=== PATIENT | male | born 1960 | race Caucasian/White ===

== ENCOUNTER → 2017-10-30 | Outpatient (CLI) | payer OTHER | END | disposition home or self-care (01) | LOC: CVU 06:44 | PROVIDERS: ATTEND Internal Medicine Cardiovascular Disease | DX: I87.2 Venous insufficiency (chronic) (peripheral) (principal) | CPT/HCPCS: 93970 ==

== ENCOUNTER 2021-03-13 12:45 | Emergency (ER) | payer OTHER ==
[~2021-03-13] VITALS: Ht 188 cm; Wt 107.0 kg
[2021-03-13 13:49] LABS: BASOPHILS % (AUTO) 1 % (0-1); EOSINOPHILS % (AUTO) 3 % (1-7); LYMPHOCYTES % (AUTO) 15 % (22-44); MEAN CORPUSCULAR HEMOGLOBIN 29.6 pg (27.5-34.5); MEAN PLATELET VOLUME 9.7 fL (7.4-10.4); MONOCYTES % (AUTO) 10 % (2-9); NEUTROPHILS % (AUTO) 73 % (42-75); PLATELET COUNT 207 x10^3/uL (130-400); RED BLOOD COUNT 5.11 x10^6/uL (4.38-5.82); RED CELL DISTRIBUTION WIDTH 14.4 % (9.4-14.8)
[2021-03-13 13:58] LABS: ALBUMIN 3.3 g/dL (3.4-5.0); ANION GAP 7 mmol/L (5-15); CHLORIDE 109 mmol/L (98-107); CREATININE 0.92 mg/dL (0.7-1.3)
--- NOTE | 2021-03-13 14:39 | NUR ---
PT WITH C/O OF TONSIL SWELLING. DR. MEJIA TO BEDSIDE FOR EVALUATION. PT ATTACHED TO MONITORS. VSDurga. OLIVER. AT BEDSIDE.
[2021-03-13] MEDS ORDERED: SODIUM CHLORIDE 0.9% 1,000ML IVBOLUS ONE (15:00)
[2021-03-13] MEDS ORDERED: DEXAMETHASONE 4 MG/ML, 1ML IVPush ONE (15:00)
[2021-03-13] MEDS ORDERED: KETOROLAC 30 MG/1 ML IV ONE (15:00)
--- NOTE | 2021-03-13 15:17 | NUR ---
PT RESTING IN BED. VSDurga. OLIVER.
[2021-03-13] MEDS ORDERED: DEXAMETHASONE 4 MG/ML, 5ML ONE (15:24)
[2021-03-13] MEDS ORDERED: KETOROLAC 30 MG/1 ML ONE (15:24)
[2021-03-13] MEDS ORDERED: OMNIPAQUE 350 MG/ML, 100ML BOTTLE ONE (15:41)
--- NOTE | 2021-03-13 15:50 | NUR ---
PT BACK FROM CT. MEDICATED PER EMAR. VIBHA. OLIVER
[2021-03-13] MEDS ORDERED: LIDOCAINE-MPF 1%, 5ML ONE (16:18)
[2021-03-13] MEDS ORDERED: LIDOCAINE-MPF 1%, 5ML INFIL ONE (16:30)
[2021-03-13 17:01] VITALS: BP 133/87
--- NOTE | 2021-03-13 17:05 | NUR ---
Patient/Caregiver given discharge instructions and they have confirmed that they understand the instructions. Patient ambulatory with steady gait. NAD, all questions answered appropriately, denies additional needs at this time. No personal belongings left in room after discharge.
== END 2021-03-13 17:05 | disposition home or self-care (01) ==
LOC: ED 14:28
DX: J36 Peritonsillar abscess (principal); R59.0 Localized enlarged lymph nodes
CPT/HCPCS: 36415; 42700; 70491; 80048; 82040; 85025; 96374; 96375; 99285; J1100; J1885; J7030; Q9967